=== PATIENT | female | born 1985 | race Caucasian/White ===

== ENCOUNTER 2018-08-14 16:42 | Emergency (ER) | payer OTHER, MEDICAID, SELFPAY ==
[2018-08-14 16:50] VITALS: BP 124/79; PULSE 73; RESP 25; TEMP 36.7; O2SAT 99; BMI 53.4
--- NOTE | 2018-08-14 17:25 | ED.DIZZY ---
HPI - Dizziness <LAURA Boswell-BC - Last Filed: 08/14/18 19:08> General Chief Complaint: Dizziness Stated Complaint: LIGHTHEADED, NAUSEA, TUNNEL VISION Time Seen by Provider: 08/14/18 16:56 Source: patient Mode of arrival: ambulatory Limitations: no limitations History of Present Illness HPI Narrative: The patient is a 33-year-old female current smoker with history of GERD who presents with a chief complaint of dizziness and presyncope earlier today. She states she was at work and felt tunnel vision and dizziness. She went to the walk-in clinic to get a note to return to work, but was sent here given her persistent dizziness and significant family cardiac history. Upon arrival the patient denies any dizziness, chest pain, shortness of breath, wooziness lightheadedness nausea vomiting diarrhea or fever. She states that she is just here to get a note to go back to work. She states that she often feels presyncopal with panic attacks. She states she thinks she might have been having a panic attack at work as she was very overwhelmed at the time. She denies syncope earlier today. Related Data Home Medications Medication Instructions Recorded Confirmed acetaminophen 325 mg capsule 650 mg PO QID PRN 08/14/18 08/14/18 aripiprazole 56 mg PO BID 08/14/18 08/14/18 gabapentin 100 mg PO TID 08/14/18 08/14/18 omeprazole 20 mg PO DAILY 08/14/18 08/14/18 propranolol 20 mg PO DAILY 08/14/18 08/14/18 sertraline 150 mg PO DAILY 08/14/18 08/14/18 Allergies Allergy/AdvReac Type Severity Reaction Status Date / Time No Known Drug Allergies Allergy Verified 08/14/18 16:57 Review of Systems <ZOFIA BoswellBC - Last Filed: 08/14/18 19:08> Review of Systems GENERAL: Denies chills, fatigue, malaise, fever, sweats. HEENT: Denies sinus pain, ear pain, sore throat, difficulty swallowing, dizziness. RESPIRATORY: Denies dyspnea, cough, wheezing, hemoptysis, sputum. CARDIOVASCULAR: See HPI GASTROINTESTINAL: Denies nausea, vomiting, abdominal pain, diarrhea, constipation, melena. : Denies dysuria, frequency, incontinence, hematuria, urinary retention. MUSCULOSKELETAL: denies weakness, joint pain, or bony pain SKIN: Denies rash, skin lesions, or other NEUROLOGIC: HPI PSYCHIATRIC: No concerning psychosocial issues. 12 point review of systems is negative except for those stated above PFSH <FLAKITA Boswell - Last Filed: 08/14/18 19:08> Medical History H/O gastroesophageal reflux (GERD) (Acute) Morbid obesity with BMI of 50.0-59.9, adult (Acute) Social History Smoking Status: Current every day smoker Social History Smoking Status: Current every day smoker Exam <FLAKITA Boswell - Last Filed: 08/14/18 19:08> Narrative Exam Narrative: GENERAL: Obese female lying on stretcher HEAD: Atraumatic. Normocephalic. No temporal or scalp tenderness. EYES: Pupils equal round and reactive. Extraocular motions intact. No scleral icterus. No injection or drainage. no nystagmus. ENT: Nose without bleeding, purulent drainage or septal hematoma. Throat without erythema, tonsillar hypertrophy or exudate. Uvula midline. Airway patent. NECK: Trachea midline. No JVD or lymphadenopathy. Supple, nontender, no meningeal signs. CARDIOVASCULAR: Regular rate and rhythm without murmurs, gallops, or rubs. RESPIRATORY: Clear to auscultation. Breath sounds equal bilaterally. No wheezes, rales, or rhonchi. No cough. No increased respiratory effort. GASTROINTESTINAL: Abdomen soft, non-tender, nondistended. No hepato-splenomegaly, or palpable masses. No guarding. EXTREMITIES: No clubbing, cyanosis, or edema. No joint tenderness, effusion, or edema noted. BACK: Nontender without deformity or crepitance. No flank tenderness. NEURO: AOx3. No obvious cranial nerve deficit. Strength is equal upper and lower extremities bilaterally. SKIN: No rash or erythema. Initial Vital Signs Initial Vital Signs: Vital Signs Temperature 98.0 F 08/14/18 16:50 Pulse Rate 73 08/14/18 16:50 Respiratory Rate 25 H 08/14/18 16:50 Blood Pressure 124/79 08/14/18 16:50 Pulse Oximetry 99 04/18/19 16:50 <Nara Lewis DO - Last Filed: 08/18/18 09:17> Initial Vital Signs Initial Vital Signs: Vital Signs Temperature 98.0 F 08/14/18 16:50 Pulse Rate 73 08/14/18 16:50 Respiratory Rate 25 H 08/14/18 16:50 Blood Pressure 124/79 08/14/18 16:50 Pulse Oximetry 99 08/14/18 16:50 Course <FLAKITA Boswell - Last Filed: 08/14/18 19:08> Orders Ordered: ED Orders 08/14/18 17:33 B Type Natriuretic Peptide Stat Complete Blood Count AUTO DIFF Stat Comprehensive Metabolic Panel Stat Troponin & CK Cardiac Panel Stat Vital Signs - 8 hr 08/14/18 16:50 08/14/18 18:25 Temperature 98.0 F Pulse Rate 73 87 Respiratory Rate 25 H 19 Blood Pressure 124/79 125/59 L Pulse Oximetry 99 98 <Nara Lewis DO - Last Filed: 08/18/18 09:17> Orders Ordered: ED Orders 08/14/18 17:33 B Type Natriuretic Peptide Stat Complete Blood Count AUTO DIFF Stat Comprehensive Metabolic Panel Stat Troponin & CK Cardiac Panel Stat Vital Signs - 8 hr 08/14/18 16:50 08/14/18 18:25 Temperature 98.0 F Pulse Rate 73 87 Respiratory Rate 25 H 19 Blood Pressure 124/79 125/59 L Pulse Oximetry 99 98 MDM - Dizziness <FLAKITA Boswell - Last Filed: 08/14/18 19:08> Lab Data Result diagrams: 08/14/18 17:33 08/14/18 17:33 Lab Results 08/14/18 08/14/18 Range/Units 17:33 17:33 WBC 8.6 (4.5-11.0) X10^3/uL RBC 4.35 (4.0-5.2) X10^6/uL Hgb 11.9 L (12.0-16.0) g/dL Hct 36.9 (36-46) % MCV 84.9 (80-100) fL MCH 27.5 (26-34) PG MCHC 32.4 (30-36) % RDW 15.5 H (11.6-14.8) % Plt Count 295 (150-400) X10^3/uL Neut % (Auto) 59.6 (50-75) % Lymph % (Auto) 29.3 (25-40) % [place] % (Auto) 9.0 (3-14) % Eos % (Auto) 0.8 L (2-4) % Baso % (Auto) 1.3 (0-2) % Neut # (Auto) 5100 (3501-8050) /uL Lymph # (Auto) 2500 (7935-6777) /uL [place] # (Auto) 800 (0-900) /uL Eos # (Auto) 100 (0-450) /uL Baso # (Auto) 100 (0-100) /uL Sodium 140 (137-145) mmol/L Potassium 4.0 (3.4-5.1) mmol/L Chloride 105 (98-107) mmol/L Carbon Dioxide 26 (22-32) mmol/L BUN 12 (7-17) mg/dL Creatinine 0.70 (0.52-1.04) mg/dL Estimated GFR > 60.0 (>60) mL/min BUN/Creatinine Ratio 17.1 (6-22) Glucose 79 (70-100) mg/dL Calcium 8.7 (8.4-10.2) mg/dL Total Bilirubin 0.2 (0.2-1.3) mg/dL AST 28 (14-36) IU/L ALT 38 (9-52) IU/L Alkaline Phosphatase 88 (38-126) U/L Total Creatine Kinase 184 H (30-135) U/L CK-MB (CK-2) 1.32 (<2.37) ng/mL CK-MB (CK-2) Rel Index 0.7 L (1.5-5.0) % Troponin I < 0.012 (0.01-0.034) ng/mL B-Natriuretic Peptide < 100 (<100) Total Protein 6.9 (6.3-8.2) g/dL Albumin 4.0 (3.5-5.0) g/dL Globulin 2.9 (1.7-4.1) g/dL Albumin/Globulin Ratio 1.4 (1.0-2.8) ECG Data Attestation: I personally reviewed and interpreted this ECG as follows: Interpretation: A sinus rhythm. Ventricular rate 74. No ST elevation or depression. No ectopy. MDM Narrative Medical decision making narrative: The patient is a 33-year-old female who presents with near-syncope earlier today. She is not anemic, has a normal troponin, normal BNP and normal electrolytes. She has normal EKG. A normal UA was obtained from the walk-in clinic, where she was also found to not be . She states her symptoms have completely resolved. She states they are related to a panic attack. Thus I cleared her to go back to work. I encouraged her to follow up with primary care provider come back to emergency department for any acute concerns addressed chest pain shortness of breath or syncope. Patient had questions or concerns upon discharge. <Nara Lewis, DO - Last Filed: 08/18/18 09:17> Lab Data Lab Results 08/14/18 08/14/18 Range/Units 17:33 17:33 WBC 8.6 (4.5-11.0) X10^3/uL RBC 4.35 (4.0-5.2) X10^6/uL Hgb 11.9 L (12.0-16.0) g/dL Hct 36.9 (36-46) % MCV 84.9 (80-100) fL MCH 27.5 (26-34) PG MCHC 32.4 (30-36) % RDW 15.5 H (11.6-14.8) % Plt Count 295 (150-400) X10^3/uL Neut % (Auto) 59.6 (50-75) % Lymph % (Auto) 29.3 (25-40) % [place] % (Auto) 9.0 (3-14) % Eos % (Auto) 0.8 L (2-4) % Baso % (Auto) 1.3 (0-2) % Neut # (Auto) 5100 (5487-0477) /uL Lymph # (Auto) 2500 (5690-5096) /uL [place] # (Auto) 800 (0-900) /uL Eos # (Auto) 100 (0-450) /uL Baso # (Auto) 100 (0-100) /uL Sodium 140 (137-145) mmol/L Potassium 4.0 (3.4-5.1) mmol/L Chloride 105 (98-107) mmol/L Carbon Dioxide 26 (22-32) mmol/L BUN 12 (7-17) mg/dL Creatinine 0.70 (0.52-1.04) mg/dL Estimated GFR > 60.0 (>60) mL/min BUN/Creatinine Ratio 17.1 (6-22) Glucose 79 (70-100) mg/dL Calcium 8.7 (8.4-10.2) mg/dL Total Bilirubin 0.2 (0.2-1.3) mg/dL AST 28 (14-36) IU/L ALT 38 (9-52) IU/L Alkaline Phosphatase 88 (38-126) U/L Total Creatine Kinase 184 H (30-135) U/L CK-MB (CK-2) 1.32 (<2.37) ng/mL CK-MB (CK-2) Rel Index 0.7 L (1.5-5.0) % Troponin I < 0.012 (0.01-0.034) ng/mL B-Natriuretic Peptide < 100 (<100) Total Protein 6.9 (6.3-8.2) g/dL Albumin 4.0 (3.5-5.0) g/dL Globulin 2.9 (1.7-4.1) g/dL Albumin/Globulin Ratio 1.4 (1.0-2.8) Discharge Plan Departure Patient Disposition: Home Clinical Impression: Dizziness, nonspecific Discharge Date/Time: 08/14/18 18:27 Interventions: ED Discharge Assessment Last Done: 08/14/18 18:25 Instructions: DI for Dizziness-Nonvertigo Activity Restrictions/Additional Instructions: You EKG is normal, your vital signs are normal and your lab work came back within normal limits. come back to the emergency department for any acute concerns such as passing out chest pain shortness of breath etc. Please follow up with primary care provider soon as possible. I have given you a note to return to work. Prescriptions: No Action acetaminophen [Tylenol] 325 mg capsule 650 mg PO QID PRN (Reason: pain) RF: 0 aripiprazole 56 mg PO BID RF: 0 sertraline 100 mg tablet 150 mg PO DAILY RF: 0 omeprazole 20 mg capsule,delayed release(DR/EC) 20 mg PO DAILY RF: 0 gabapentin 100 mg capsule 100 mg PO TID RF: 0 propranolol 20 mg tablet 20 mg PO DAILY RF: 0 Referrals: Renee Mai MD [Primary Care Provider] - Stand Alone Forms: Work Release Note <Nara Lewis DO - Last Filed: 08/18/18 09:17> Cosign ED Attending Cosignature Attestation: I was immediately available in the department for consultation. Documentation has been reviewed. I agree with assessment and plan.
--- NOTE | 2018-08-14 17:30 | ED_ITS ---
HPI - Dizziness <LAURA Boswell-BC - Last Filed: 08/14/18 19:08> General Chief Complaint: Dizziness Stated Complaint: LIGHTHEADED, NAUSEA, TUNNEL VISION Time Seen by Provider: 08/14/18 16:56 Source: patient Mode of arrival: ambulatory Limitations: no limitations History of Present Illness HPI Narrative: The patient is a 33-year-old female current smoker with history of GERD who presents with a chief complaint of dizziness and presyncope earlier today. She states she was at work and felt tunnel vision and dizziness. She went to the walk-in clinic to get a note to return to work, but was sent here given her persistent dizziness and significant family cardiac history. Upon arrival the patient denies any dizziness, chest pain, shortness of breath, wooziness lightheadedness nausea vomiting diarrhea or fever. She states that she is just here to get a note to go back to work. She states that she often feels presyncopal with panic attacks. She states she thinks she might have been having a panic attack at work as she was very overwhelmed at the time. She denies syncope earlier today. Related Data Home Medications Medication Instructions Recorded Confirmed acetaminophen 325 mg capsule 650 mg PO QID PRN 08/14/18 08/14/18 aripiprazole 56 mg PO BID 08/14/18 08/14/18 gabapentin 100 mg PO TID 08/14/18 08/14/18 omeprazole 20 mg PO DAILY 08/14/18 08/14/18 propranolol 20 mg PO DAILY 08/14/18 08/14/18 sertraline 150 mg PO DAILY 08/14/18 08/14/18 Allergies Allergy/AdvReac Type Severity Reaction Status Date / Time No Known Drug Allergies Allergy Verified 08/14/18 16:57 Review of Systems <ZOFIA BoswellBC - Last Filed: 08/14/18 19:08> Review of Systems GENERAL: Denies chills, fatigue, malaise, fever, sweats. HEENT: Denies sinus pain, ear pain, sore throat, difficulty swallowing, dizziness. RESPIRATORY: Denies dyspnea, cough, wheezing, hemoptysis, sputum. CARDIOVASCULAR: See HPI GASTROINTESTINAL: Denies nausea, vomiting, abdominal pain, diarrhea, consti pation, melena. : Denies dysuria, frequency, incontinence, hematuria, urinary retention. MUSCULOSKELETAL: denies weakness, joint pain, or bony pain SKIN: Denies rash, skin lesions, or other NEUROLOGIC: HPI PSYCHIATRIC: No concerning psychosocial issues. 12 point review of systems is negative except for those stated above PFSH <FLAKITA Boswell - Last Filed: 08/14/18 19:08> Medical History H/O gastroesophageal reflux (GERD) (Acute) Morbid obesity with BMI of 50.0-59.9, adult (Acute) Social History Smoking Status: Current every day smoker Social History Smoking Status: Current every day smoker Exam <FLAKITA Boswell - Last Filed: 08/14/18 19:08> Narrative Exam Narrative: GENERAL: Obese female lying on stretcher HEAD: Atraumatic. Normocephalic. No temporal or scalp tenderness. EYES: Pupils equal round and reactive. Extraocular motions intact. No scleral icterus. No injection or drainage. no nystagmus. ENT: Nose without bleeding, purulent drainage or septal hematoma. Throat without erythema, tonsillar hypertrophy or exudate. Uvula midline. Airway patent. NECK: Trachea midline. No JVD or lymphadenopathy. Supple, nontender, no meningeal signs. CARDIOVASCULAR: Regular rate and rhythm without murmurs, gallops, or rubs. RESPIRATORY: Clear to auscultation. Breath sounds equal bilaterally. No wheezes, rales, or rhonchi. No cough. No increased respiratory effort. GASTROINTESTINAL: Abdomen soft, non-tender, nondistended. No hepato- splenomegaly, or palpable masses. No guarding. EXTREMITIES: No clubbing, cyanosis, or edema. No joint tenderness, effusion, or edema noted. BACK: Nontender without deformity or crepitance. No flank tenderness. NEURO: AOx3. No obvious cranial nerve deficit. Strength is equal upper and lower extremities bilaterally. SKIN: No rash or erythema. Initial Vital Signs Initial Vital Signs: Vital Signs Temperature 98.0 F 08/14/18 16:50 Pulse Rate 73 08/14/18 16:50 Respiratory Rate 25 H 08/14/18 16:50 Blood Pressure 124/79 08/14/18 16:50 Pulse Oximetry 99 08/14/18 16:50 <Naar Lewis DO - Last Filed: 08/18/18 09:17> Initial Vital Signs Initial Vital Signs: Vital Signs Temperature 98.0 F 08/14/18 16:50 Pulse Rate 73 08/14/18 16:50 Respiratory Rate 25 H 08/14/18 16:50 Blood Pressure 124/79 08/14/18 16:50 Pulse Oximetry 99 08/14/18 16:50 Course <FLAKITA Boswell - Last Filed: 08/14/18 19:08> Orders Ordered: ED Orders 08/14/18 17:33 B Type Natriuretic Peptide Stat Complete Blood Count AUTO DIFF Stat Comprehensive Metabolic Panel Stat Troponin & CK Cardiac Panel Stat Vital Signs - 8 hr 08/14/18 16:50 08/14/18 18:25 Temperature 98.0 F Pulse Rate 73 87 Respiratory Rate 25 H 19 Blood Pressure 124/79 125/59 L Pulse Oximetry 99 98 <Nara Lewis DO - Last Filed: 08/18/18 09:17> Orders Ordered: ED Orders 08/14/18 17:33 B Type Natriuretic Peptide Stat Complete Blood Count AUTO DIFF Stat Comprehensive Metabolic Panel Stat Troponin & CK Cardiac Panel Stat Vital Signs - 8 hr 08/14/18 16:50 08/14/18 18:25 Temperature 98.0 F Pulse Rate 73 87 Respiratory Rate 25 H 19 Blood Pressure 124/79 125/59 L Pulse Oximetry 99 98 MDM - Dizziness <FLAKITA Boswell - Last Filed: 08/14/18 19:08> Lab Data Result diagrams: 08/14/18 17:33 08/14/18 17:33 Lab Results 08/14/18 08/14/18 Range/Units 17:33 17:33 WBC 8.6 (4.5-11.0) X10^3/uL RBC 4.35 (4.0-5.2) X10^6/uL Hgb 11.9 L (12.0-16.0) g/dL Hct 36.9 (36-46) % MCV 84.9 (80-100) fL MCH 27.5 (26-34) PG MCHC 32.4 (30-36) % RDW 15.5 H (11.6-14.8) % Plt Count 295 (150-400) X10^3/uL Neut % (Auto) 59.6 (50-75) % Lymph % (Auto) 29.3 (25-40) % [place] % (Auto) 9.0 (3-14) % Eos % (Auto) 0.8 L (2-4) % Baso % (Auto) 1.3 (0-2) % Neut # (Auto) 5100 (9418-8864) /uL Lymph # (Auto) 2500 (5897-1531) /uL [place] # (Auto) 800 (0-900) /uL Eos # (Auto) 100 (0-450) /uL Baso # (Auto) 100 (0-100) /uL Sodium 140 (137-145) mmol/L Potassium 4.0 (3.4-5.1) mmol/L Chloride 105 (98-107) mmol/L Carbon Dioxide 26 (22-32) mmol/L BUN 12 (7-17) mg/dL Creatinine 0.70 (0.52-1.04) mg/dL Estimated GFR > 60.0 (>60) mL/min BUN/Creatinine Ratio 17.1 (6-22) Glucose 79 (70-100) mg/dL Calcium 8.7 (8.4-10.2) mg/dL Total Bilirubin 0.2 (0.2-1.3) mg/dL AST 28 (14-36) IU/L ALT 38 (9-52) IU/L Alkaline Phosphatase 88 (38-126) U/L Total Creatine Kinase 184 H (30-135) U/L CK-MB (CK-2) 1.32 (<2.37) ng/mL CK-MB (CK-2) Rel Index 0.7 L (1.5-5.0) % Troponin I < 0.012 (0.01-0.034) ng/mL B-Natriuretic Peptide < 100 (<100) Total Protein 6.9 (6.3-8.2) g/dL Albumin 4.0 (3.5-5.0) g/dL Globulin 2.9 (1.7-4.1) g/dL Albumin/Globulin Ratio 1.4 (1.0-2.8) ECG Data Attestation: I personally reviewed and interpreted this ECG as follows: Interpretation: A sinus rhythm. Ventricular rate 74. No ST elevation or depression. No ectopy. MDM Narrative Medical decision making narrative: The patient is a 33-year-old female who presents with near-syncope earlier today. She is not anemic, has a normal troponin, normal BNP and normal electrolytes. She has normal EKG. A normal UA was obtained from the walk-in clinic, where she was also found to not be . She states her symptoms have completely resolved. She states they are related to a panic attack. Thus I cleared her to go back to work. I encouraged her to follow up with primary care provider come back to emergency department for any acute concerns addressed chest pain shortness of breath or syncope. Patient had questions or concerns upon discharge. <Nara Lewis, - Last Filed: 08/18/18 09:17> Lab Data Lab Results 08/14/18 08/14/18 Range/Units 17:33 17:33 WBC 8.6 (4.5-11.0) X10^3/uL RBC 4.35 (4.0-5.2) X10^6/uL Hgb 11.9 L (12.0-16.0) g/dL Hct 36.9 (36-46) % MCV 84.9 (80-100) fL MCH 27.5 (26-34) PG MCHC 32.4 (30-36) % RDW 15.5 H (11.6-14.8) % Plt Count 295 (150-400) X10^3/uL Neut % (Auto) 59.6 (50-75) % Lymph % (Auto) 29.3 (25-40) % [place] % (Auto) 9.0 (3-14) % Eos % (Auto) 0.8 L (2-4) % Baso % (Auto) 1.3 (0-2) % Neut # (Auto) 5100 (2169-5752) /uL Lymph # (Auto) 2500 (6404-9898) /uL [place] # (Auto) 800 (0-900) /uL Eos # (Auto) 100 (0-450) /uL Baso # (Auto) 100 (0-100) /uL Sodium 140 (137-145) mmol/L Potassium 4.0 (3.4-5.1) mmol/L Chloride 105 (98-107) mmol/L Carbon Dioxide 26 (22-32) mmol/L BUN 12 (7-17) mg/dL Creatinine 0.70 (0.52-1.04) mg/dL Estimated GFR > 60.0 (>60) mL/min BUN/Creatinine Ratio 17.1 (6-22) Glucose 79 (70-100) mg/dL Calcium 8.7 (8.4-10.2) mg/dL Total Bilirubin 0.2 (0.2-1.3) mg/dL AST 28 (14-36) IU/L ALT 38 (9-52) IU/L Alkaline Phosphatase 88 (38-126) U/L Total Creatine Kinase 184 H (30-135) U/L CK-MB (CK-2) 1.32 (<2.37) ng/mL CK-MB (CK-2) Rel Index 0.7 L (1.5-5.0) % Troponin I < 0.012 (0.01-0.034) ng/mL B-Natriuretic Peptide < 100 (<100) Total Protein 6.9 (6.3-8.2) g/dL Albumin 4.0 (3.5-5.0) g/dL Globulin 2.9 (1.7-4.1) g/dL Albumin/Globulin Ratio 1.4 (1.0-2.8) Discharge Plan Departure Patient Disposition: Home Clinical Impression: Dizziness, nonspecific Discharge Date/Time: 08/14/18 18:27 Interventions: ED Discharge Assessment Last Done: 08/14/18 18:25 Instructions: DI for Dizziness-Nonvertigo Activity Restrictions/Additional Instructions: You EKG is normal, your vital signs are normal and your lab work came back within normal limits. come back to the emergency department for any acute concerns such as passing out chest pain shortness of breath etc. Please follow up with primary care provider soon as possible. I have given you a note to return to work. Prescriptions: No Action acetaminophen [Tylenol] 325 mg capsule 650 mg PO QID PRN (Reason: pain) RF: 0 aripiprazole 56 mg PO BID RF: 0 sertraline 100 mg tablet 150 mg PO DAILY RF: 0 omeprazole 20 mg capsule,delayed release(DR/EC) 20 mg PO DAILY RF: 0 gabapentin 100 mg capsule 100 mg PO TID RF: 0 propranolol 20 mg tablet 20 mg PO DAILY RF: 0 Referrals: Renee Mai MD [Primary Care Provider] - Stand Alone Forms: Work Release Note <Nara Lewis DO - Last Filed: 08/18/18 09:17> Cosign ED Attending Costrentonature Attestation: I was immediately available in the department for consultation. Documentation has been reviewed. I agree with assessment and plan.
[2018-08-14 17:46] LABS: Add Manual Diff / Slide Review NO; Basophils Absolute Auto 100 /uL (0-100); Basophils Percent Auto 1.3 % (0-2); Eosinophils Absolute Auto 100 /uL (0-450); Eosinophils Percent Auto 0.8 % (2-4); Hematocrit 36.9 % (36-46); Hemoglobin 11.9 g/dL (12.0-16.0); Lymphocytes Absolute Auto 2500 /uL (1100-4500); Lymphocytes Percent Auto 29.3 % (25-40); Mean Corpuscular HGB Conc 32.4 % (30-36); Mean Corpuscular Hemoglobin 27.5 PG (26-34); Mean Corpuscular Volume 84.9 fL (80-100); Monocytes Absolute Auto 800 /uL (0-900); Neutrophils Absolute Auto 5100 /uL (1500-7000); Neutrophils Percent Auto 59.6 % (50-75); Platelet Count 295 X10^3/uL (150-400); Red Blood Cell Count 4.35 X10^6/uL (4.0-5.2); Red Cell Distribution Width 15.5 % (11.6-14.8); White Blood Cell Count 8.6 X10^3/uL (4.5-11.0)
[2018-08-14 17:53] LABS: Alanine Aminotransferase 38 IU/L (9-52); Albumin Globulin Ratio 1.4 (1.0-2.8); Alkaline Phosphatase 88 U/L (38-126); Aspartate Aminotransferase 28 IU/L (14-36); BUN Creatinine Ratio 17.1 (6-22); Bilirubin Total 0.2 mg/dL (0.2-1.3); Blood Urea Nitrogen 12 mg/dL (7-17); Calcium 8.7 mg/dL (8.4-10.2); Carbon Dioxide 26 mmol/L (22-32); Chloride 105 mmol/L (98-107); Creatine Kinase 184 U/L (30-135); Estimated Glomerular Filt Rate > 60.0 mL/min (>60); Globulin 2.9 g/dL (1.7-4.1); Glucose 79 mg/dL (70-100); HEMOLYSIS 16 (0-50); Sodium 140 mmol/L (137-145); Total Protein 6.9 g/dL (6.3-8.2)
[2018-08-14 18:03] LABS: B Type Natriuretic Peptide < 100 (<100)
[2018-08-14 18:04] LABS: Troponin I < 0.012 ng/mL (0.01-0.034)
[2018-08-14 18:08] LABS: CKMB % Relative Index 0.7 % (1.5-5.0); Creatine Kinase MB 1.32 ng/mL (<2.37)
[2018-08-14 18:25] VITALS: BP 125/59; PULSE 87; RESP 19; O2SAT 98
== END 2018-08-14 18:27 | disposition home or self-care (01) ==
PROVIDERS: Emergency Provider Nurse Practitioner Family; Family Provider Family Medicine; PCP Family Medicine
DX: R42 Dizziness and giddiness (principal); R11.0 Nausea; H53.489 Generalized contraction of visual field, unspecified eye
CPT/HCPCS: 36415; 80053; 82550; 82553; 83880; 84484; 85025; 93005; 93010; 93041; 99283; 99284

== ENCOUNTER 2018-08-30 13:58 | Emergency (ER) | payer OTHER, MEDICAID, SELFPAY ==
[2018-08-30 14:05] VITALS: BP 132/54; PULSE 82; RESP 16; TEMP 36.9; O2SAT 97; BMI 53.1
--- NOTE | 2018-08-30 14:37 | ED_ITS ---
HPI - Headache General Chief Complaint: Headache Stated Complaint: states possible migraine; feels sinus presssure Time Seen by Provider: 08/30/18 14:13 Source: patient Mode of arrival: ambulatory Limitations: no limitations History of Present Illness HPI Narrative: Patient is a 33-year-old female who presents with facial pain. She said she woke up this morning with facial pain on forehead on the zygomatic arches. She did not feel well yesterday slept most of the day is was unable to go to work. She could not get warm but did not really have a temperature. He is afebrile here. She has taken some Tylenol for any relief. She has a history of migraine headaches with this does not feel like a migraine. Related Data Home Medications Medication Instructions Recorded Confirmed acetaminophen 325 mg capsule 650 mg PO QID PRN 08/14/18 08/14/18 aripiprazole 56 mg PO BID 08/14/18 08/14/18 gabapentin 100 mg PO TID 08/14/18 08/14/18 omeprazole 20 mg PO DAILY 08/14/18 08/14/18 propranolol 20 mg PO DAILY 08/14/18 08/14/18 sertraline 150 mg PO DAILY 08/14/18 08/14/18 Allergies Allergy/AdvReac Type Severity Reaction Status Date / Time risperidone [From Risperdal] Allergy Verified 08/30/18 14:05 Review of Systems Review of Systems GENERAL: Denies chills, fatigue, malaise, fever, sweats, travel HEENT: see HPI RESPIRATORY: Denies dyspnea, cough, wheezing, hemoptysis, sputum. CARDIOVASCULAR: Denies chest pain, palpitations, orthopnea, edema GASTROINTESTINAL: Denies nausea, vomiting, abdominal pain, diarrhea, constipation, melena. : Denies dysuria, frequency, incontinence, hematuria, urinary retention, flank pain. MUSCULOSKELETAL: Denies weakness, joint pain, or bony pain SKIN: No rash, no erythema, no pruritus NEUROLOGIC: Denies weakness, dizziness, headache, numbness, change in speech, confusion PSYCHIATRIC: No concerning psychosocial issues. 12 point review of systems is negative except for those stated above and HPI [facility] Medical History H/O gastroesophageal reflux (GERD) (Acute) Morbid obesity with BMI of 50.0-59.9, adult (Acute) Social History Smoking Status: Current every day smoker Social History Smoking Status: Current every day smoker Exam Initial Vital Signs Initial Vital Signs: Vital Signs Temperature 98.4 F 08/30/18 14:05 Pulse Rate 82 08/30/18 14:05 Respiratory Rate 16 08/30/18 14:05 Blood Pressure 132/54 L 08/30/18 14:05 Pulse Oximetry 97 08/30/18 14:05 GENERAL: Overweight well-appearing female and in no acute distress. HEENT: Head atraumatic,EOMI, pupils reactive, face symmetric, tender over the frontal maxillary sinuses., neck supple no meningeal signs CARDIOVASCULAR: Regular rate and rhythm without murmurs, rubs or gallops. RESPIRATORY: Breath sounds equal bilaterally, no wheezes rales or rhonchi. EXTREMITIES: Normal range of motion, no clubbing or edema. Neurovascularly intact NEUROLOGICAL: Alert and oriented x4.Normal gait and speech. Cranial nerves II through XII grossly intact. SKIN: Warm, dry, no laceration, no petechiae, no rashes or lesions. Course Orders Ordered: Discontinued Medications Ketorolac Tromethamine (Toradol) 60 mg IM NOW ONE Stop: 08/30/18 14:43 Last Admin: 08/30/18 15:01 Dose: 60 mg Vital Signs - 8 hr 08/30/18 14:05 Temperature 98.4 F Pulse Rate 82 Respiratory Rate 16 Blood Pressure 132/54 L Pulse Oximetry 97 MDM - Headache MDM Narrative Medical decision making narrative: Patient has facial tenderness. Likely to be sinusitis. Ongoing for 1 day no indication for antibiotics at this time. I have explained this to the patient. She is really wanting a work note. She would like to return to work tomorrow. At this time I have no reason to keep her from doing so Discharge Plan Departure Patient Disposition: Home Clinical Impression: Sinusitis Qualifiers: Sinusitis location: maxillary Chronicity: acute Recurrence: non-recurrent [place] lified Code(s): J01.00 - Acute maxillary sinusitis, unspecified Discharge Date/Time: 08/30/18 15:27 Interventions: ED Discharge Assessment Last Done: 08/30/18 15:26 Instructions: DI for Sinus Headache Activity Restrictions/Additional Instructions: *You have been diagnosed with sinusitis *What to do: No antibiotics indicated at this time *Continue to take medications as directed *Follow up with your primary care provider in 2-3 days *Return to ER if you should have persistent symptoms more than 10 days ago, worsening headache neck pain or any new, worsening or concerning symptoms Prescriptions: No Action acetaminophen [Tylenol] 325 mg capsule 650 mg PO QID PRN (Reason: pain) RF: 0 aripiprazole 56 mg PO BID RF: 0 sertraline 100 mg tablet 150 mg PO DAILY RF: 0 omeprazole 20 mg capsule,delayed release(DR/EC) 20 mg PO DAILY RF: 0 gabapentin 100 mg capsule 100 mg PO TID RF: 0 propranolol 20 mg tablet 20 mg PO DAILY RF: 0 Referrals: Renee Mai MD [Primary Care Provider] - Stand Alone Forms: Work Release Note
[2018-08-30] MEDS: KETOROLAC 60 MG/2 ML VIAL IM (15:01)
== END 2018-08-30 15:27 | disposition home or self-care (01) ==
PROVIDERS: Emergency Provider Emergency Medicine; PCP Family Medicine
DX: J01.00 Acute maxillary sinusitis, unspecified (principal)
CPT/HCPCS: 96372; 99282; 99283; J1885

== ENCOUNTER → 2019-06-15 17:53 | Outpatient (CLI) | payer OTHER, MEDICAID, SELFPAY | PROVIDERS: PCP Family Medicine; Visit Provider Nurse Practitioner | DX: N61.1 Abscess of the breast and nipple (principal) | CPT/HCPCS: 87070; 87075; 87077; 87147; 87205; 87210 ==

== ENCOUNTER 2019-07-08 12:03 | Emergency (ER) | payer OTHER, MEDICAID, SELFPAY ==
[2019-07-08 12:05] VITALS: BP 141/86; PULSE 95; RESP 14; TEMP 36.5; O2SAT 97; BMI 55.5
[2019-07-08] MEDS: ONDANSETRON 4 MG ODT SL (12:33)
[2019-07-08 12:44] LABS: Add Manual Diff / Slide Review NO; Basophils Absolute Auto 100 /uL (0-100); Basophils Percent Auto 1.1 % (0-2); Eosinophils Absolute Auto 100 /uL (0-450); Eosinophils Percent Auto 1.1 % (2-4); Hematocrit 40.4 % (36-46); Hemoglobin 13.2 g/dL (12.0-16.0); Lymphocytes Absolute Auto 3200 /uL (1100-4500); Lymphocytes Percent Auto 25.6 % (25-40); Mean Corpuscular HGB Conc 32.6 % (30-36); Mean Corpuscular Hemoglobin 28.5 PG (26-34); Mean Corpuscular Volume 87.4 fL (80-100); Monocytes Absolute Auto 900 /uL (0-900); Monocytes Percent Auto 7.1 % (3-14); Neutrophils Absolute Auto 8100 /uL (1500-7000); Neutrophils Percent Auto 65.1 % (50-75); Platelet Count 318 X10^3/uL (150-400); Red Blood Cell Count 4.63 X10^6/uL (4.0-5.2); Red Cell Distribution Width 14.9 % (11.6-14.8); White Blood Cell Count 12.5 X10^3/uL (4.5-11.0)
[2019-07-08 12:59] LABS: Alanine Aminotransferase 14 IU/L (<35); Albumin 3.8 g/dL (3.5-5.0); Albumin Globulin Ratio 1.2 (1.0-2.8); Alkaline Phosphatase 108 U/L (38-126); Aspartate Aminotransferase 18 IU/L (14-36); BUN Creatinine Ratio 17.4 (6-22); Bilirubin Total 0.2 mg/dL (0.2-1.3); Blood Urea Nitrogen 12 mg/dL (7-17); Carbon Dioxide 27 mmol/L (22-32); Chloride 106 mmol/L (98-107); Estimated Glomerular Filt Rate > 60.0 mL/min (>60); Globulin 3.3 g/dL (1.7-4.1); Glucose 119 mg/dL (70-100); HEMOLYSIS < 15 (0-50); Potassium 4.4 mmol/L (3.4-5.1); Sodium 140 mmol/L (137-145); Total Protein 7.1 g/dL (6.3-8.2)
--- NOTE | 2019-07-08 13:20 | ED_ITS ---
HPI - Dizziness <ZOFIA BoswellBC - Last Filed: 07/08/19 14:20> General Chief Complaint: Dizziness Stated Complaint: vertigo, left jaw pain Time Seen by Provider: 07/08/19 12:07 Source: patient Mode of arrival: Ambulatory Limitations: no limitations History of Present Illness HPI Narrative: The patient is a 34-year-old female with history of vertigo who presents with a chief complaint of left-sided jaw pain and swelling. She states that the pain radiates to her left ear and she feels nauseous. She was diagnosed with vertigo at the walk-in clinic on Saturday. She denies any fevers vomiting constipation diarrhea or abdominal pain. She denies any recent dental work. She has been using only the meclizine that was prescribed to feel better. She presents primarily because of the pain and swelling on the left side of her jaw. Related Data Home Medications Medication Instructions Recorded Confirmed acetaminophen 325 mg capsule 650 mg PO QID PRN 08/14/18 07/08/19 gabapentin 100 mg PO TID 08/14/18 07/08/19 omeprazole 20 mg PO DAILY 08/14/18 07/08/19 propranolol 20 mg PO DAILY 08/14/18 07/08/19 sertraline 150 mg PO DAILY 08/14/18 07/08/19 aripiprazole 5 mg PO BID 07/08/19 07/08/19 clotrimazole 1 applic TOPICAL BID 07/08/19 07/08/19 Previous Rx's Medication Instructions Recorded meclizine 25 mg tablet 25 mg PO BID-TID PRN #30 tab 07/05/19 ondansetron 4 mg PO Q6H PRN #14 tab 07/08/19 penicillin V potassium 500 mg PO QID 10 Days #40 tab 07/08/19 Allergies Allergy/AdvReac Type Severity Reaction Status Date / Time risperidone [From Risperdal] Allergy Verified 07/08/19 12:17 Review of Systems <FLAKITA Boswell - Last Filed: 07/08/19 14:20> Review of Systems Narrative: GENERAL: Denies chills, fatigue, malaise, fever, sweats. HEENT: See HPI RESPIRATORY: Denies dyspnea, cough, wheezing, hemoptysis, sputum. CARDIOVASCULAR: Denies chest pain, palpitations, orthopnea, edema, GASTROINTESTINAL: See HPI : Denies dysuria, frequency, incontinence, hematuria, urinary retention. MUSCULOSKELETAL: denies weakness, joint pain, or bony pain SKIN: Denies rash, skin lesions, or other NEUROLOGIC: See HPI PSYCHIATRIC: No concerning psychosocial issues. 12 point review of systems is negative except for those stated above Patient History <FLAKITA Boswell - Last Filed: 07/08/19 14:20> Medical History H/O gastroesophageal reflux (GERD) (Acute) Morbid obesity with BMI of 50.0-59.9, adult (Acute) Social History Smoking Status: Current every day smoker Smoking Status: Current every day smoker alcohol intake frequency: holidays/special occasions only Substance Use Type: does not use Exam <FLAKITA Boswell - Last Filed: 07/08/19 14:20> Narrative Exam Narrative: GENERAL: Morbidly obese female no acute distress HEAD: Atraumatic. Normocephalic. No temporal or scalp tenderness. EYES: Pupils equal round and reactive. Extraocular motions intact. No scleral icterus. No injection or drainage. ENT: Nose without bleeding, purulent drainage or septal hematoma. Throat without erythema, tonsillar hypertrophy or exudate. Uvula midline. Airway patent. Left lower gum with erythema, pain to palpation. No palpable fluctuance or abscess NECK: Trachea midline. No JVD or lymphadenopathy. Supple, nontender, no meningeal signs. CARDIOVASCULAR: Regular rate and rhythm RESPIRATORY: Clear to auscultation. Breath sounds equal bilaterally. No wheezes, rales, or rhonchi. No cough. No increased respiratory effort. No accessory muscle use. GASTROINTESTINAL: Abdomen soft, non-tender, nondistended. No hepato-splenomegaly, or palpable masses. No guarding. Active bowel sounds all 4 quadrants EXTREMITIES: No clubbing, cyanosis, or edema. No joint tenderness, effusion, or edema noted. BACK: Nontender without deformity or crepitance. No flank tenderness. NEURO: AOx3. SKIN: No rash or erythema. Initial Vital Signs Initial Vital Signs: Vital Signs Temperature 97.7 F 07/08/19 12:05 Pulse Rate 95 H 03/11/20 12:05 Respiratory Rate 14 07/08/19 12:05 Blood Pressure 141/86 H 07/08/19 12:05 Pulse Oximetry 97 07/08/19 12:05 <Candy Kelley MD - Last Filed: 07/10/19 03:10> Initial Vital Signs Initial Vital Signs: Vital Signs Temperature 97.7 F 07/08/19 12:05 Pulse Rate 95 H 07/08/19 12:05 Respiratory Rate 14 07/08/19 12:05 Blood Pressure 141/86 H 07/08/19 12:05 Pulse Oximetry 97 07/08/19 12:05 Scores <FLAKITA Boswell - Last Filed: 07/08/19 14:20> GCS [place] coma scale eye opening: Spontaneous Rachna coma scale verbal response: Orientated Rachna coma scale motor response: Obey commands [place] coma scale total score: 15 PERC Score Age greater than or equal to 50 years: No Heart rate greater than or equal to 100 bpm: No Room Air O2 Sat less than 95%: No Unilateral leg swelling: No Recent trauma or surgery: No Hemoptysis: No Prior PE or DVT: No Hormone Use: No Total PERC Score: 0 Wells' Criteria for PE Clinical signs and symptoms of DVT: No PE is #1 Dx or equally likely: No Heart rate > 100: No Immobilization at least 3 days or surg in previous 4 weeks: No History of PE or DVT: No Hemoptysis: No Malignancy w/Treatment within 6 months or palliative: No Wells' PE Score total: 0 Course <FLAKITA Boswell - Last Filed: 07/08/19 14:20> Orders Ordered: Discontinued Medications Ondansetron HCl (Zofran Odt) 4 mg SL NOW ONE Stop: 07/08/19 12:19 Last Admin: 07/08/19 12:33 Dose: 4 mg Documented by: RAVI Vital Signs Vital signs: Vital Signs - 8 hr 07/08/19 12:05 Temperature 97.7 F Pulse Rate 95 H Respiratory Rate 14 Blood Pressure 141/86 H Pulse Oximetry 97 <Candy Kelley MD - Last Filed: 07/10/19 03:10> Orders Ordered: Discontinued Medications Ondansetron HCl (Zofran Odt) 4 mg SL NOW ONE Stop: 07/08/19 12:19 Last Admin: 07/08/19 12:33 Dose: 4 mg Documented by: RAVI Vital Signs Vital signs: Vital Signs - 8 hr 07/08/19 12:05 Temperature 97.7 F Pulse Rate 95 H Respiratory Rate 14 Blood Pressure 141/86 H Pulse Oximetry 97 MDM - Dizziness <Sophie Ballard, TRAVEL ASSISTANT-BC - Last Filed: 07/08/19 14:20> Lab Data Result diagrams: 07/08/19 12:35 07/08/19 12:35 Labs: Lab Results 07/08/19 07/08/19 Range/Units 12:35 12:35 WBC 12.5 H (4.5-11.0) X10^3/uL RBC 4.63 (4.0-5.2) X10^6/uL Hgb 13.2 (12.0-16.0) g/dL Hct 40.4 (36-46) % MCV 87.4 (80-100) fL MCH 28.5 (26-34) PG MCHC 32.6 (30-36) % RDW 14.9 H (11.6-14.8) % Plt Count 318 (150-400) X10^3/uL Neut % (Auto) 65.1 (50-75) % Lymph % (Auto) 25.6 (25-40) % [place] % (Auto) 7.1 (3-14) % Eos % (Auto) 1.1 L (2-4) % Baso % (Auto) 1.1 (0-2) % Neut # (Auto) 8100 H (4302-0409) /uL Lymph # (Auto) 3200 (3769-1147) /uL [place] # (Auto) 900 (0-900) /uL Eos # (Auto) 100 (0-450) /uL Baso # (Auto) 100 (0-100) /uL Sodium 140 (137-145) mmol/L Potassium 4.4 (3.4-5.1) mmol/L Chloride 106 (98-107) mmol/L Carbon Dioxide 27 (22-32) mmol/L BUN 12 (7-17) mg/dL Creatinine 0.69 (0.52-1.04) mg/dL Estimated GFR > 60.0 (>60) mL/min BUN/Creatinine Ratio 17.4 (6-22) Glucose 119 H (70-100) mg/dL Calcium 9.0 (8.4-10.2) mg/dL Magnesium 2.0 (1.6-2.3) mg/dL Total Bilirubin 0.2 (0.2-1.3) mg/dL AST 18 (14-36) IU/L ALT 14 (<35) IU/L Alkaline Phosphatase 108 (38-126) U/L Total Protein 7.1 (6.3-8.2) g/dL Albumin 3.8 (3.5-5.0) g/dL Globulin 3.3 (1.7-4.1) g/dL Albumin/Globulin Ratio 1.2 (1.0-2.8) Point of Care Testing Test Results Negative Urine Dip Bedside Urine Glucose Negative Bedside Urine Bilirubin - Negative Bedside Urine Ketone - Negative Urine Specific [place] 1.025 Bedside Urine Occult Blood - Negative Bedside Urine pH 6.0 Bedside Urine Protein - Negative Bedside Urine Urobilinogen - Negative Bedside Urine Nitrite - Negative Bedside Urine Leukocytes - Negative Esterase MDM Narrative Medical decision making narrative: The patient is a 34 year female who presents with a chief complaint of no improvement in her vertigo from which she was seen 3 days ago. Of left-sided jaw pain and swelling as well. Exam indicates dental infection. Whilst initiate Pen VK 500 mg q.i.d.. Also Zofran. Patient felt better after some Zofran and states that she felt like she was ready to leave. Lab work is grossly within normal limits. Discussed at length the importance of following up with primary care provider coming back to the emergency department for any acute concerns. Patient has no questions or concerns upon discharge and states understanding of return precautions as well as follow-up care <Candy Kelley MD - Last Filed: 07/10/19 03:10> Lab Data Labs: Lab Results 07/08/19 07/08/19 Range/Units 12:35 12:35 WBC 12.5 H (4.5-11.0) X10^3/uL RBC 4.63 (4.0-5.2) X10^6/uL Hgb 13.2 (12.0-16.0) g/dL Hct 40.4 (36-46) % MCV 87.4 (80-100) fL MCH 28.5 (26-34) PG MCHC 32.6 (30-36) % RDW 14.9 H (11.6-14.8) % Plt Count 318 (150-400) X10^3/uL Neut % (Auto) 65.1 (50-75) % Lymph % (Auto) 25.6 (25-40) % [place] % (Auto) 7.1 (3-14) % Eos % (Auto) 1.1 L (2-4) % Baso % (Auto) 1.1 (0-2) % Neut # (Auto) 8100 H (7623-6999) /uL Lymph # (Auto) 3200 (2133-1059) /uL [place] # (Auto) 900 (0-900) /uL Eos # (Auto) 100 (0-450) /uL Baso # (Auto) 100 (0-100) /uL Sodium 140 (137-145) mmol/L Potassium 4.4 (3.4-5.1) mmol/L Chloride 106 (98-107) mmol/L Carbon Dioxide 27 (22-32) mmol/L BUN 12 (7-17) mg/dL Creatinine 0.69 (0.52-1.04) mg/dL Estimated GFR > 60.0 (>60) mL/min BUN/Creatinine Ratio 17.4 (6-22) Glucose 119 H (70-100) mg/dL Calcium 9.0 (8.4-10.2) mg/dL Magnesium 2.0 (1.6-2.3) mg/dL Total Bilirubin 0.2 (0.2-1.3) mg/dL AST 18 (14-36) IU/L ALT 14 (<35) IU/L Alkaline Phosphatase 108 (38-126) U/L Total Protein 7.1 (6.3-8.2) g/dL Albumin 3.8 (3.5-5.0) g/dL Globulin 3.3 (1.7-4.1) g/dL Albumin/Globulin Ratio 1.2 (1.0-2.8) Point of Care Testing Test Results Negative Urine Dip Bedside Urine Glucose Negative Bedside Urine Bilirubin - Negative Bedside Urine Ketone - Negative Urine Specific [place] 1.025 Bedside Urine Occult Blood - Negative Bedside Urine pH 6.0 Bedside Urine Protein - Negative Bedside Urine Urobilinogen - Negative Bedside Urine Nitrite - Negative Bedside Urine Leukocytes - Negative Esterase Discharge Plan Departure Patient Disposition: Home Clinical Impression: Dental infection Discharge Date/Time: 07/08/19 14:33 Instructions: Tooth Abscess, DI for Dental Pain Activity Restrictions/Additional Instructions: Thank you for trusting us with your care today. Today your labs came back well, your urine shows no signs of infection, but your exam is concerning for a dental infection. I have sent 2 prescriptions to [facility]. One is ondansetron for nausea. Be aware that this can be constipating. The 2nd is an antibiotic for your dental infection. Please take this with a probiotic or yogurt. I suggest following up with primary care provider and your dentist. Please rest and push fluids. I have also given you a work note. Please come back to the emergency department for any acute concerns. Prescriptions: New ondansetron 4 mg tablet,disintegrating 4 mg PO Q6H PRN (Reason: nausea and vomiting) Qty: 14 RF: 0 penicillin V potassium 500 mg tablet 500 mg PO QID 10 Days Qty: 40 RF: 0 No Action acetaminophen [Tylenol] 325 mg capsule 650 mg PO QID PRN (Reason: pain) RF: 0 meclizine 25 mg tablet 25 mg PO BID-TID PRN (Reason: dizziness) Qty: 30 RF: 0 sertraline 100 mg tablet 150 mg PO DAILY RF: 0 omeprazole 20 mg capsule,delayed release(DR/EC) 20 mg PO DAILY RF: 0 gabapentin 100 mg capsule 100 mg PO TID RF: 0 propranolol 20 mg tablet 20 mg PO DAILY RF: 0 clotrimazole 1 % cream 1 applic TOPICAL BID RF: 0 aripiprazole 5 mg Tablet 5 mg PO BID RF: 0 Referrals: Renee Mai MD [Primary Care Provider] - Joo Tim DO [Physician] - Stand Alone Forms: Work Release Note
--- NOTE | 2019-07-08 13:36 | PC.NURSE ---
Left jaw pain, dental caries present.
--- NOTE | 2019-07-08 13:42 | PC.NURSE ---
URINE AND POC ARE NEGAITVE
[2019-07-08 14:00] VITALS: BP 139/76; PULSE 78; RESP 16; O2SAT 98
== END 2019-07-08 14:33 | disposition home or self-care (01) ==
PROVIDERS: Emergency Provider Nurse Practitioner Family; PCP Family Medicine
DX: K04.7 Periapical abscess without sinus (principal)
CPT/HCPCS: 36415; 80053; 81003; 81025; 83735; 85025; 99283